=== PATIENT | female | born 1945 | race Caucasian/White ===

== ENCOUNTER 2017-09-16 15:21 | Inpatient (IN) | payer OTHER, MEDICARE ==
[~2017-09-16] VITALS: Ht 165.1 cm; Wt 80.0 kg
[2017-09-16] VITALS (7 sets, daily range): BP systolic 106–170; BP diastolic 65–98; PULSE 80–98; RESP 18–20; TEMP 97.5–97.9; O2SAT 92–98
[~2017-09-16 15:21] MED LIST: Z.0.NO CURRENT MEDS
[2017-09-16] MEDS ORDERED: SODIUM CHLORID 0.9% 500 ML INJ 500 ML IV ONE (16:00)
[2017-09-16] MEDS ORDERED: MORPHINE SULFATE 4 MG/ML INJ IV PUSH ONE (16:00)
[2017-09-16] MEDS ORDERED: SODIUM CHLORIDE 0.9% FLUSH 10 ML FLUSH IVF PRN (16:00)
[2017-09-16] MEDS ORDERED: ASPIRIN 81 MG CHEW TAB PO ONE (16:00)
[2017-09-16] MEDS ORDERED: ONDANSETRON HCL 4 MG/2 ML VIAL IV PUSH ONE (16:00)
--- NOTE | 2017-09-16 16:01 | PD ---
HPI . Nausea and vomiting Chief Complaint: GI Complaint Time Seen by Provider: 15:50 Travel History International Travel<30 days: No Contact w/Intl Traveler<30days: No Traveled to known affect area: No History of Present Illness HPI Patient presents with her daughter with a chief complaint of jaw and throat pain followed by nausea and and diarrhea. Onset was 2 hours prior to presentation. She also complains of diffuse, profound weakness and some chest discomfort. Her symptoms have been constant for the last 2 hours. She has tried a cold washcloth and ice chips without relief of her symptoms. Her symptoms were exacerbated by trying to get from the house to the car. That is, minimal exertion exacerbated her symptoms. PFSH Past Medical History Cardiovascular Problems: Yes Cerebrovascular Accident: Yes Diabetes: No Diminished Hearing: No Respiratory: Yes (COPD) Immunizations Current: Yes Tetanus Vaccination: Unknown ?: Not Menopausal: Yes Past Surgical History Cardiac Surgery: Yes (AR, CVA) Gynecologic Surgery: Yes Social History Alcohol Use: Yes (COUPLE DRINKS ONCE WEEKLY) Tobacco Use: Yes (1PPD FOR ABOUT 40 YEARS) Substance Use: No Allergies-Medications (Allergen,Severity, Reaction): Coded Allergies: Sulfa (Sulfonamide Antibiotics) (Unverified Allergy, Mild, 09/16/17) penicillin G (Unverified Allergy, Mild, 09/16/17) propoxyphene (Unverified Allergy, Mild, 09/16/17) heparin (Verified Allergy, Unknown, unknown, 09/16/17) Reported Meds & Prescriptions Reported Meds & Active Scripts Active No Active Prescriptions or Reported Medications Review of Systems Except as stated in HPI: all other systems reviewed are Neg Physical Exam Narrative GENERAL: Healthy-appearing 71-year-old woman who does not appear to be in any acute distress. SKIN: warm/dry. HEAD: Normocephalic. Atraumatic. EYES: Pupils equal and round. No scleral icterus. No injection or drainage. ENT: No nasal bleeding or discharge. Mucous membranes pink and moist. NECK: Trachea midline. Full range of motion without pain.. CARDIOVASCULAR: Regular rate and rhythm. Heart sounds are normal. RESPIRATORY: No accessory muscle use. Clear to auscultation. Breath sounds equal bilaterally. GASTROINTESTINAL: Abdomen soft. Nontender. Bowel sounds present. Nondistended. MUSCULOSKELETAL: No obvious deformities. NEUROLOGICAL: Awake and alert. No obvious cranial nerve deficits. Motor grossly within normal limits. Normal speech. PSYCHIATRIC: Appropriate mood and affect; insight and judgment normal. Data Data Last Documented VS Vital Signs Date Time Temp Pulse Resp B/P (MAP) Pulse Ox O2 Delivery O2 Flow Rate FiO2 09/16/17 16:21 98 20 170/87 (114) 98 Nasal Cannula 2.00 09/16/17 15:29 97.9 Orders Orders Electrocardiogram (09/16/17 15:54) Basic Metabolic Panel (Bmp) (09/16/17 15:54) Complete Blood Count With Diff (09/16/17 15:54) Magnesium (Mg) (09/16/17 15:54) Prothrombin Time / Inr (Pt) (09/16/17 15:54) Act Partial Throm Time (Ptt) (09/16/17 15:54) Troponin I (09/16/17 15:54) Chest, Single Ap (09/16/17 15:54) Ecg Monitoring (09/16/17 15:54) Iv Access Insert/Monitor (09/16/17 15:54) Oximetry (09/16/17 15:54) Aspirin Chew (Aspirin Chew) (09/16/17 16:00) Morphine Inj (Morphine Inj) (09/16/17 16:00) Sodium Chloride 0.9% Flush (Ns Flush) (09/16/17 16:00) Sodium Chlorid 0.9% 500 Ml Inj (Ns 500 M (09/16/17 16:00) Ondansetron Inj (Zofran Inj) (09/16/17 16:00) Heparin Inj (Heparin Inj) (09/16/17 16:15) Heparin Inj (Heparin Inj) (09/16/17 22:15) Heparin Inj (Heparin Inj) (09/16/17 22:15) Heparin-D5w 25,000 U/250 Ml (Heparin-D5w (09/16/17 16:30) Heparin Inj (Heparin Inj) (09/16/17 16:13) Admit Order (Ed Use Only) (09/16/17 ) Frame Stripper And Crusher / Telemetry [id number] (09/16/17 16:14) Vital Signs (Adult) Q4H (09/16/17 16:14) Diet Npo (09/16/17 Dinner) Activity Bed Rest (09/16/17 16:14) Notify Dr: Other (09/16/17 16:14) Labs Laboratory Tests Test 09/16/17 16:00 White Blood Count 11.1 TH/MM3 Red Blood Count 4.28 MIL/MM3 Hemoglobin 13.3 GM/DL Hematocrit 38.6 % Mean Corpuscular Volume 90.3 FL Mean Corpuscular Hemoglobin 31.2 PG Mean Corpuscular Hemoglobin Concent 34.5 % Red Cell Distribution Width 13.0 % Platelet Count 389 TH/MM3 Mean Platelet Volume 8.3 FL Neutrophils (%) (Auto) 74.1 % Lymphocytes (%) (Auto) 17.9 % Monocytes (%) (Auto) 6.8 % Eosinophils (%) (Auto) 1.1 % Basophils (%) (Auto) 0.1 % Neutrophils # (Auto) 8.2 TH/MM3 Lymphocytes # (Auto) 2.0 TH/MM3 Monocytes # (Auto) 0.8 TH/MM3 Eosinophils # (Auto) 0.1 TH/MM3 Basophils # (Auto) 0.0 TH/MM3 CBC Comment DIFF FINAL Differential Comment Prothrombin Time 9.4 SEC Prothromb Time International Ratio 0.9 RATIO Activated Partial Thromboplast Time 27.4 SEC Blood Urea Nitrogen 14 MG/DL Creatinine 0.82 MG/DL Random Glucose 152 MG/DL Calcium Level 9.1 MG/DL Magnesium Level 2.1 MG/DL Sodium Level 137 MEQ/L Potassium Level 3.7 MEQ/L Chloride Level 107 MEQ/L Carbon Dioxide Level 23.2 MEQ/L Anion Gap 7 MEQ/L Estimat Glomerular Filtration Rate 69 ML/MIN MDM Medical Decision Making Medical Screen Exam Complete: Yes Emergency Medical Condition: Yes Interpretation(s) EKG shows acute ST segment elevation inferiorly with reciprocal lateral STT wave changes. Differential Diagnosis Differential diagnosis of chest pain includes but is not limited to musculoskeletal pain, pulmonary embolism, acute coronary syndrome, pneumonia, pleurisy Narrative Course With the chief complaint of nausea, diarrhea and profound weakness which is associated with throat and jaw pain as well as chest discomfort. She needs to be evaluated for ACS. An EKG has been ordered. An IV will be started and she will be treated with IV morphine and Zofran initially. She will also be given aspirin. Routine labs, cardiac enzymes and chest x-ray are pending. I anticipate eventual admission to the hospital, at least to the chest pain center. Following her EKG, a stroke alert was called. Heparin was ordered but the patient reports allergy to heparin. She does report that she feels much better following morphine and Zofran. She has had aspirin. Critical Care Narrative Aggregate critical care time was 30 minutes. Time to perform other separately billable procedures was not included in the critical care time. My time did not include minutes spent treating any other patients simultaneously or on activities that did not directly contribute to the patient's treatment. The services I provided to this patient were to treat and/or prevent clinically significant deterioration due to STEMI, inferior AR I provided critical care services requiring my management, as noted below: Chart data review, documentation time, medication orders and management, vital sign assessments/reviewing monitor data, ordering and reviewing lab tests, ordering and interpreting/reviewing x-rays and diagnostic studies, care of the patient and discussion of the patient with the admitting physicians Physician Communication Physician Communication Dr. Dagn recommends against starting nitroglycerin because of the inferior AR. She has likely to develop cardiogenic shock. Diagnosis Primary Impression: Nausea Additional Impressions: Weakness Jaw pain Acute inferior myocardial infarction Admitting Information Admitting Physician Requests: Admit Scripts No Active Prescriptions or Reported Meds Condition: Aracely Farnsworth MD Sep 16, 2017 16:01
[2017-09-16] MEDS ORDERED: HEPARIN SODIUM - IV 10,000 UNITS/10 ML VIAL ONE (16:13)
[2017-09-16] MEDS ORDERED: HEPARIN SODIUM - IV 10,000 UNITS/10 ML VIAL IV PUSH ONE (16:15)
[2017-09-16 16:30] LABS: AUTOMATED NEUTROPHIL # 8.2 TH/MM3 (1.8-7.7); BASOPHIL % 0.1 % (0.0-2.0); EOSINOPHIL # 0.1 TH/MM3 (0-0.4); EOSINOPHIL % 1.1 % (0.0-4.0); HEMATOCRIT 38.6 % (35.0-46.0); HEMOGLOBIN 13.3 GM/DL (11.6-15.3); LYMPH % 17.9 % (9.0-44.0); MEAN CELL VOLUME 90.3 FL (80.0-100.0); MEAN CORPUSCULAR HEMOGLOBIN 31.2 PG (27.0-34.0); MEAN CORPUSCULAR HGB CONC 34.5 % (32.0-36.0); MEAN PLATELET VOLUME 8.3 FL (7.0-11.0); MONO % 6.8 % (0.0-8.0); MONOCYTE # 0.8 TH/MM3 (0-0.9); NEUT % 74.1 % (16.0-70.0); PLATELET COUNT 389 TH/MM3 (150-450); RED BLOOD COUNT 4.28 MIL/MM3 (4.00-5.30); WHITE BLOOD COUNT 11.1 TH/MM3 (4.0-11.0)
[2017-09-16] MEDS ORDERED: HEPARIN-D5W 25,000 U/250 ML 250 ML IV SCH (16:30)
[2017-09-16 16:31] LABS: CALCIUM 9.1 MG/DL (8.5-10.1)
[2017-09-16 16:32] LABS: BICARBONATE 23.2 MEQ/L (21.0-32.0); MAGNESIUM 2.1 MG/DL (1.5-2.5)
[2017-09-16 16:34] LABS: INTERNATIONAL NORMALIZED RATIO 0.9 RATIO; PROTHROMBIN TIME - PATIENT 9.4 SEC (9.8-11.6)
[2017-09-16 16:35] LABS: CREATININE 0.82 MG/DL (0.50-1.00)
[2017-09-16 16:40] LABS: TROPONIN I 0.04 NG/ML (0.02-0.05)
--- NOTE | 2017-09-16 16:47 | RADRPT ---
EXAM DATE/TIME: 09/16/2017 16:18 [facility] COMPARISON: No previous studies available for comparison. INDICATIONS : Chest pain. Stemi alert. MEDICAL HISTORY : None. SURGICAL HISTORY : Tubal ligation. Bilateral knees. ENCOUNTER: Initial ACUITY: 1 day PAIN SCORE: 6/10 LOCATION: Right chest FINDINGS: The heart size is normal. The lungs are free of focal consolidation. There is a questionable focal ma ss in the right upper lung. A significant effusion is not seen. CONCLUSION: 1. No definite acute abnormality seen. 2. Possible mass in the right upper lung. A CT examination the chest is recommended at some point. Jeremy Oliveira MD on September 16, 2017 at 16:43 Board Certified Radiologist. This report was verified electronically.
[2017-09-16] MEDS ORDERED: BIVALIRUDIN 250 MG VIAL ONE (16:52)
[2017-09-16] MEDS ORDERED: LIDOCAINE HCL 1% PF 30 ML VIAL ONE (16:58)
[2017-09-16] MEDS ORDERED: VERAPAMIL HCL 5 MG/2 ML VIAL ONE (17:02)
[2017-09-16] MEDS ORDERED: MIDAZOLAM HCL 2 MG/2 ML VIAL ONE (17:03)
--- NOTE | 2017-09-16 17:19 | MH ---
cc: Bryant Dang Vincent G DO DATE OF ADMISSION: 09/16/2017 CHIEF COMPLAINT: Nausea, vomiting. HISTORY OF PRESENT ILLNESS: Dana Daugherty is a pleasant 71-year-old female who presented to [facility] emergency room due to nausea and vomiting. She states that this has been going on for about the past 2 hours. During the episode, she has also felt some chest discomfort. She tried to use a wash cloth and ice chips without relief of her symptoms. As they were trying to get her to the car, this made the chest pain worse. Upon arrival, she was found to have ST elevations in the inferior leads and I was called emergently for consideration of cardiac catheterization. PAST MEDICAL HISTORY: 1. History of cerebrovascular accident. 2. Chronic obstructive pulmonary disease. PAST SURGICAL HISTORY: 1. Tubal ligation. 2. D and C. 3. Right knee arthroscopic partial medial and lateral meniscectomy (2010). ALLERGIES: 1. SULFA. 2. HEPARIN. 3. PENICILLIN. 4. PROPOXYPHENE MEDICATIONS: None listed at this time. FAMILY HISTORY: Brother had a history of coronary artery disease. SOCIAL HISTORY: The patient has a few drinks once a week. She smoked 1 pack a day for about 40 years. Denies drug abuse. REVIEW OF SYSTEMS: Fourteen systems were reviewed including osteopathic, pertinent positives and negatives above, otherwise negative. PHYSICAL EXAMINATION: VITAL SIGNS: Temperature 97.9, heart rate 98, blood pressure 170/87, respirations 20, pulse oximetry 98% on 2 liters. GENERAL: The patient appears well, although in mild acute distress due to chest pain. Alert, awake and oriented x3. HEENT: Extraocular muscles intact. Mucous membranes moist. NECK: Supple. No JVD at 45 degrees. No carotid bruits heard bilaterally. Carotid upstroke is brisk in nature. HEART: Regular rate and rhythm. Positive first and second heart sounds with no murmurs, gallops or rubs. LUNGS: Clear to auscultation bilaterally. No wheezes, rales or rhonchi. ABDOMEN: Soft, nontender, nondistended. No organomegaly noted. EXTREMITIES: Show no clubbing, cyanosis or edema. Femoral and distal pulses are intact bilaterally. NEUROLOGIC: No focal deficits. SKIN: Warm, dry and intact. OSTEOPATHIC: No kyphoscoliosis, lordosis or paraspinal tender points. LABORATORY DATA: Hemoglobin 13.3, hematocrit 38.6, platelets 389. Potassium 3.7, BUN 14, creatinine 0.82. Troponin 0.04. CARDIOLOGY STUDIES: Electrocardiogram (09/16/2017 at 16:04) sinus rhythm, ST elevations inferiorly with ST depressions anteriorly consistent with an inferior posterior myocardial infarction. IMPRESSION: 1. Acute inferior posterior myocardial infarction. 2. Chest pain due to coronary insufficiency. 3. Tobacco abuse. 4. Chronic obstructive pulmonary disease. 5. History of cerebrovascular accident. RECOMMENDATIONS: 1. Ms. Daugherty presented with acute chest pain and was found to have ST elevation myocardial infarction and will be recommended cardiac catheterization. 2. Risks, benefits, and alternatives have been discussed with her and she consents as such. 3. She has an unknown ALLERGY TO HEPARIN and so we will plan on using bivalirudin. 4. We will check a 2-Dimensional echocardiogram to look at her overall left ventricular function, cardiac structure and possible valvopathies. 5. During her hospitalization, we will plan to discuss with her for greater than 3 minutes about tobacco cessation. 6. Further recommendations will be made after coronary visualization. Thank you for allowing me to see Dana Daugherty. If there are any questions, please do not hesitate to call. Bryant Dang, DO V[facility]/SA , 04:56 PM , 05:17 PM
[2017-09-16] MEDS ORDERED: ONDANSETRON HCL 4 MG/2 ML VIAL ONE ×2 (17:36→17:46)
[2017-09-16] MEDS ORDERED: ADENOSINE IV SOLN 3 MG/ML 2 ML VIAL ONE (17:37)
[2017-09-16] MEDS ORDERED: SODIUM NITROPRUSSIDE 50 MG/2 ML VIAL ONE (17:47)
[2017-09-16] MEDS ORDERED: TIROFIBAN INFUSION INJ 250 ML IV ONE (17:53)
[2017-09-16] MEDS ORDERED: TICAGRELOR 90 MG TAB PO ONE (17:53)
[2017-09-16] MEDS ORDERED: ATROPINE SULFATE 1 MG/10 ML SYRINGE ONE (18:08)
[2017-09-16] MEDS: SODIUM CHLOR 0.9% 1000 ML INJ 1,000 ML IV SCH (18:35)
[2017-09-16] MEDS: TIROFIBAN INFUSION INJ 250 ML IV SCH (18:35)
--- NOTE | 2017-09-16 18:44 | CATHPROC ---
[employer] HIS Report Study Information Study Number Admission Scheduled Start Study Start [id number] Sep 16 2017 4:16PM 09/16/2017 Sep 16 2017 4:54PM Study Type [place] Service Left/Possible PCI Cardiac Catheterization Admit Source Facility Department Emergency department [facility] - Teaching Dietitian Physician and Clinical Staff Initial Bryant Albright Mechanical Service Specialist Jocy Weldon RN Mechanical Service Specialist Constance Estes Recorder Mariam Delgado,ABRASIVE WORKER TECH2 Scrub Susu Gross,RT(R) (BS) Procedures Performed Procedure Location (Site) Vessel Name Coronary Angiograms LCA Left Coronary Coronary Angiograms RCA Right Coronary Drug Eluting Inflatio RCA Mid Right Coronary PTCA RCA Mid Right Coronary Wire insertion Radial (right) Radial Art. Equipment Time Non Categorical Preschool Teacher Description Size Mf Part Number Used/Scraped [id number] 17:48 [facility] WIRE, ASAHI PROWATER 180CM 180CM Used *[id number] WIRE, BALANCE MIDDLEWEIGHT [id number] 17:28 [facility] [facility] 190CM Used 190CM *[id number] TRANSDUCER, TRUWAVE [id number] 17:00 [facility] * Used W/STOCKCOCK *[id number] *[id number] *[id number] 17:00 ResiModel PACK, CCL CUSTOM * Used *[id number] 17:00 ResiModel SUPPORT, ARTERIAL ADULT [id number] *[id number] Used [id number] 17:30 MEDTRONIC BALLOON, 2.0 X 12MM EUPHORA 12MM Used *[id number] BALLOON, 3.0 X 12MM NC [id number] 17:52 MEDTRONIC 12MM Used EUPHORA *[id number] EXPORTAP 17:32 MEDTRONIC CATHETER, EXPORT ASPIRATON Used *[id number] EXPORTAP 17:32 MEDTRONIC CATHETER, EXPORT ASPIRATON Used *[id number] STENT, 3.0 22 RESOLUTE [id number] 17:42 MEDTRONIC 3.0 22 Used INTEGRITY RX *[id number] 17:31 Dreamforge 30 BUDDY INDEFLATOR Used *[id number] BAND, RADIAL COMPRESSION TR [id number] 18:02 dVisit MEDICAL 24CM Used SHORT 24 *[id number] 17:00 [employer]forge WIRE, EXCHANGE 260CM 3MMJ 260CM Used *[id number] 17:00 NAMIC MANIFOLD, 4 PORT * Used *[id number] 17:00 NYCOMED OMNIPAQUE, 350 MG, 150ML 150ML [id number] Used [id number] 17:00 BEECH BLUFF MEDICAL BLANKET,WARM AIR CCL * Used *[id number] SHEATH, FR6 TRANSRADIAL [id number] 17:00 TERfrestyl FR 6 Used SLENDER 10CM *[id number] Equipment Model, Serial, Lot Number and Expiration Data Description Model Number Serial Number Lot Number Expiration Date BAND, RADIAL COMPRESSION TR [id number] 03-21-2020 SHORT 24 CATHETER, EXPORT ASPIRATON [id number] 03-29-2019 STENT, 3.0 22 RESOLUTE [id number] 10-03-2018 INTEGRITY RX History: Allergies Allergy Reaction Sulfa (Sulfonamide Antibiotics) propoxyphene penicillin G heparin unknown History: Risk Factors Family History of Hypertension Dyslipidemia Previous AL Previous Heart Failure Premature CAD No No No Yes No Prior Valve Prior PCI Prior CABG Surgery No No No Cerebrovascular Peripheral Artery Chronic Lung On Dialysis Diabetes Disease Disease Disease No Yes No Yes No History: Symptoms/Diagnosis Selection Items Angina-unstable History: Stress Tests Stress or Imaging Studies Performed No History: Other Current Smoker Method Packs a Day Years Used Pack Years Yes Cigarettes 1 40 40 Labs Hgb (g/dl) Hct (%) WBC (l/cumm) Platelets (thousands) 11.60-17.00 35.00-51.00 4.00-11.00 150.00-450.00 13.3 38.6 11.1 389 Glucose (mg/dl) BUN (mg/dl) Creatinine (mg/dl) BUN:Creatinine (1:x) 74.00-106.00 7.00-18.00 0.50-1.30 10.00-20.00 152 14 0.8 17.5 Na (meq/l) K (meq/l) Cl (meq/l) CO2 (mmol/L) Ca (mg/dl) 136.00-145.00 3.50-5.10 98.00-107.00 21.00-32.00 8.50-10.10 137 3.7 107 23.2 9.1 PT (sec) PTT (sec) INR (PTT:PT) 9.80-11.60 24.30-30.10 0.90-1.10 9.4 27.4 0.9 Troponin I (ng/ml) CPK-MB (ng/ML) 0.02-0.05 0.50-3.60 0.04 Not Drawn Medication Medication Total Dose (Bolus/Oral) Medication Total Dosage/Unit 1% XYLOCAINE 5 mL ADENOSINE 18 mcg AGGRASTAT BOLUS 40.5 mg ANGIOMAX BOLUS 12 mL ATROPINE 0.5 mg BRILINTA 180 mg FENTANYL 25 mcg OXYGEN 2 l/min RADIAL COCKTAIL 5 mL (Bolus) VERSED 0.5 mg ZOFRAN 8 mg Medications (Bolus/Oral) Medication Time Given Dosage/Unit Administered By Reason OXYGEN 09/16/2017 5:11:39 PM 2 l/min Patient arrived on 2 l/min OXYGEN via Nasal. 1% XYLOCAINE 09/16/2017 5:18:15 PM 5 mL Brynat Dang 5 mL 1% XYLOCAINE given in lab by Bryant Dang in Right Radial via Subcutaneous. VERSED 09/16/2017 5:19:27 PM 0.5 mg Jocy Weldon 0.5 mg VERSED given in lab by Jocy Weldon RN via Peripheral IV. Ordered by Bryant Dang RADIAL COCKTAIL 09/16/2017 5:20:05 PM 5 mL (Bolus) Bryant Dang 5 mL (Bolus) RADIAL COCKTAIL given in lab by Bryant Dang via Radial. Using [Solution Name]. R uyen: Ntg 200mcg Verapamil 2.5mg . FENTANYL 09/16/2017 5:20:48 PM 25 mcg Jocy Weldon 25 mcg FENTANYL given in lab by Jocy Weldon RN in Left Antecubital via Peripheral IV. Ordered by Bryant Dang ANGIOMAX BOLUS 09/16/2017 5:27:23 PM 12 mL Bello Weldonon 12 mL ANGIOMAX BOLUS given in lab by Jocy Weldon, FUAD in Left Hand via Peripheral IV. Ordered by Bryant Carrera ZOFRAN 09/16/2017 5:38:24 PM 4 mg Constance Estes 4 mg ZOFRAN given in lab by Constance Estes in Left Antecubital via Peripheral IV. Ordered by Bryant Huynh ATROPINE 09/16/2017 5:39:05 PM 0.5 mg Jocy Weldon 0.5 mg ATROPINE given in lab by Jocy Weldon RN in Left Antecubital via Peripheral IV. Ordered by Bryant Dang ADENOSINE 09/16/2017 5:41:04 PM 18 mcg Bryant Dang 18 mcg ADENOSINE given in lab by Bryant Dang via Intra-coronary to RCA. Ordered by Bryant Dang ZOFRAN 09/16/2017 5:47:22 PM 4 mg Constance Estes 4 mg ZOFRAN given in lab by Constance Estes in Left Antecubital via Peripheral IV. Ordered by Bryant Huynh AGGRASTAT BOLUS 09/16/2017 5:58:34 PM 40.5 mg Jocy Weldon 40.5 mg AGGRASTAT BOLUS given in lab by Jocy Weldon RN in Left Antecubital via Peripheral IV. Ord ered by Bryant Dang. BRILINTA 09/16/2017 6:12:42 PM 180 mg Jocy Weldon 180 mg BRILINTA given in lab by Jocy Weldon RN via Oral. Ordered by Bryant Dang Medication (Drip) Medication Time Given Dosage/Unit Concentration/Unit Diluent (ml) Solution AGGRASTAT DRIP 09/16/2017 6:00:50 PM 0.15 mcg/kg/min 12.5 mg 250 NaCl .9 0.15 mcg/kg/min AGGRASTAT DRIP given in lab by Jocy Weldon RN in Left Antecubital via Peripheral IV. Pump/Drip Flow = 14.58 ml/hr using NaCl .9 with a concentration of 12.5 mg in 250 ml. Ordered by Bryant Dang ANGIOMAX DRIP 09/16/2017 5:29:09 PM 1.75 mg/kg/hr 250 mg 50 NaCl .9 1.75 mg/kg/hr ANGIOMAX DRIP given in lab by Jocy Weldon RN in Left Hand via Peripheral IV. Pump/D rip Flow = 28.35 ml/hr using NaCl .9 with a concentration of 250 mg in 50 ml. Ordered by Bryant Dang IV Solutions 09/16/2017 5:04:47 PM 0 mL (IV) 500 NaCl .9 Patient arrived on IV Solutions in Left Hand via Peripheral IV. Pump/Drip Flow = 20 ml/hr using NaCl .9. IV Solutions 09/16/2017 5:04:49 PM 0 mL (IV) 500 NaCl .9 Patient arrived on IV Solutions in Left Antecubital via Peripheral IV. Pump/Drip Flow = 20 ml/hr isiah chamberlain NaCl .9. NIPRIDE 09/16/2017 5:57:25 PM 50 mcg 50 mcg NIPRIDE given in lab by Bryant Dang via Intra-coronary to RCA. Ordered by Yuko Dang. Initial Case Assessment Cardiovascular HR NIBP Chest Pain 73 144/79 0 Circulatory - Right Pulses Dorsalis Pedis Femoral Radial 2 2 2 Scale (0,1,2,3,4,d) Circulatory - Left Pulses Dorsalis Pedis Femoral Radial 2 2 Scale (0,1,2,3,4,d) Neurological State Oriented to time-place- Alert Moves all extremities person Respiration - General Respiration Rate SpO2 (%) O2 (lpm) (B/min) 22 99 2 Final Case Assessment Cardiovascular HR Rhythm NIBP Chest Pain 93 sr 100/43 0 Circulatory - Right Pulses Dorsalis Pedis Femoral Radial 2 2 2 Scale (0,1,2,3,4,d) Circulatory - Left Pulses Dorsalis Pedis Femoral Radial 2 Scale (0,1,2,3,4,d) Neurological State Oriented to time-place- Alert Moves all extremities person Respiration - General Respiration Rate SpO2 (%) O2 (lpm) (B/min) 19 97 2 Chronological Log Time Study Chronological Log 16:35:25 [facility] notified that Teaching Dietitian is ready. 17:03:45 Patient arrived directly from [facility] ER. 17:03:51 Patient Name, D.O.B, / Armband Verified By R.N. 17:03:53 Pre-op and post- op instructions given; patient acknowledges understanding of instructions. 17:03:54 Verbal Stimulation=2 Physical Stimulation=2 Airway=2 Respiration=2 TOTAL=8. (0=absent, 1=li mited, 2=present) 17:04:17 arrived. 17:04:39 Presedation assessment performed by Teaching Dietitian RN. 17:04:40 Patient has been NPO for More than 6Hrs. 17:04:41 Skin Breakdown-none 17:04:42 Disposable Defibrillator Pads Placed On Patient. 17:04:43 [place] Prominences Protected 17:04:46 A # 20 IV was noted in the Hand (left). Grade = 0 17:04:47 Patient arrived on IV Solutions in Left Hand via Peripheral IV. Pump/Drip Flow = 20 ml/hr u sing NaCl .9. 17:04:48 A # 20 IV was noted in the Antecubital (left). Grade = 0 17:04:49 Patient arrived on IV Solutions in Left Antecubital via Peripheral IV. Pump/Drip Flow = 20 ml/hr using NaCl .9. 17:05:32 Consent signed by the physician and the patient and verified by the Teaching Dietitian staff. Vitals capture started with the following parameters, Patient=Adult, Interval=5 min, Initial Pr ncpmwc=091 mmHg, 17:11:16 Deflation Rate=5 mmHg, Cuff placed on Left Arm 17:11:39 Patient arrived on 2 l/min OXYGEN via Nasal. 17:12:30 HR=80 bpm, CPTL=706/79 mmhg, SpO2=97 %, Resp=23 B/min, Pain=0, Adelina=10, Francois=2 17:13:06 History and physical on the chart or being dictated. 17:13:11 Bilateral groins and right radial prepped with 2% chlorhexidine, and draped after a 3 min. waiting time. 17:14:10 Reference ECG taken Assessment: Initial Case, HR=73 BPM, REHE=268/79 mmhg, Chest Pain=0 Right Pulses: Yobani Ped=2, Femoral=2, Radial=2 17:14:17 Left Pulses: Yobani Ped=2, Femoral=2 Neurological: State=Alert, Ox3, BATISTA Respiration: Resp=22 B/min, SpO2=99 %, O2=2 lpm 17:16:42 Pressure channel 1 zeroed. 17:17:29 HR=87 bpm, LFPP=822/83 mmhg, SpO2=98.0 %, Resp=21 B/min Time Out. Correct patient, correct procedure, correct physician, power injector not loaded/used with contrast with 17:17:52 surgical team present. Time Out Concurred by MD and individual staff in procedure. No heparin w as added to the flush. 17:18:14 Case Start 17:18:15 5 mL 1% XYLOCAINE given in lab by Bryant Dang in Right Radial via Subcutaneous. 17:19:27 0.5 mg VERSED given in lab by Jocy Weldon, FUAD via Peripheral IV. Ordered by Yuko Dang 17:19:29 Access site was Radial Artery. right A SHEATH, FR6 TRANSRADIAL SLENDER 10CM FR 6 was advanced into the Radial (right) using the Perc utaneous 17:19:44 technique. 5 mL (Bolus) RADIAL COCKTAIL given in lab by Bryant Dang via Radial. Using [Solution Na me]. Reason: Ntg 17:20:05 200mcg Verapamil 2.5mg . A JL 3.5 INFINITI CATHETER FR 5 was advanced over a wire. OMNIPAQUE, 350 MG, 150ML 150ML was us ed for 17:20:37 injections. 25 mcg FENTANYL given in lab by Jocy Weldon, RN in Left Antecubital via Peripheral IV. Order ed by Alton 17:20:48 Bryant Chavira 17:21:54 HR=89 bpm, JZZQ=877/62 mmhg, SpO2=98.0 %, Resp=22 B/min Recorded Pressure: Ao, HR=86, Condition=Condition 1 17:22:01 (Aorta) Ao 112/69/89 17:22:18 The LCA was injected and visualized at various angles. OMNIPAQUE, 350 MG, 150ML 150ML used . After removing the current catheter a JR 4.0 GUIDE CATHETER FR 6 was advanced over a WIRE, EXCH LILIANE 260CM 17:24:09 3MMJ 260CM. Recorded Pressure: LV, HR=55, Condition=Condition 1 17:26:35 (Left Ventricle) LV 104/7/18 Recorded Pressure: LV, Ao, HR=55, Condition=Condition 1 17:26:50 (Left Ventricle) LV 104/9/17, (Aorta) Ao 103/56/78 17:27:12 The RCA was injected and visualized at various angles. OMNIPAQUE, 350 MG, 150ML 150ML used . 12 mL ANGIOMAX BOLUS given in lab by Jocy Weldon, RN in Left Hand via Peripheral IV. Ordered by Alton 17:27:23 Bryant Chavira 17:27:27 HR=56 bpm, ZKTS=453/46 mmhg, SpO2=95 %, Resp=20 B/min 17:28:38 A WIRE, BALANCE MIDDLEWEIGHT 190CM 190CM was inserted via Radial (right). 1.75 mg/kg/hr ANGIOMAX DRIP given in lab by Jocy Weldon, FUAD in Left Hand via Peripheral IV. Pump/Drip Flow = 17:29:09 28.35 ml/hr using NaCl .9 with a concentration of 250 mg in 50 ml. Ordered by Bryant Dang 17:29:41 Interventional wire has crossed the lesion A BALLOON, 2.0 X 12MM EUPHORA 12MM was inserted over WIRE, BALANCE MIDDLEWEIGHT 190CM 190CM via the 17:29:47 RCA. A BALLOON, 2.0 X 12MM EUPHORA 12MM over a WIRE, BALANCE MIDDLEWEIGHT 190CM 190CM in the RCA Mid was 17:30:25 inflated using a 30 BUDDY INDEFLATOR at 8 buddy for 15 sec. 17:31:39 Balloon Removed. 17:31:58 HR=44 bpm, NIBP=85/40 mmhg, SpO2=97.0 %, Resp=21 B/min 17:32:40 NIBP STAT measurement started. 17:32:50 Pressure channel 1 zeroed. A CATHETER, EXPORT ASPIRATON was advanced over a wire. OMNIPAQUE, 350 MG, 150ML 150ML was used for 17:33:13 injections. 17:33:28 Fluids opened wide 17:34:03 HR=47 bpm, NIBP=70/37 mmhg, SpO2=93.0 %, Resp=20 B/min 17:34:49 Aspiration in progress 17:35:21 NIBP STAT measurement started. 17:36:02 Pt nauseated 17:36:04 [employer] Catheter was removed 17:36:28 HR=77 bpm, NIBP=90/39 mmhg, SpO2=98.0 %, Resp=16 B/min Recorded Pressure: Ao, HR=78, Condition=Condition 1 17:36:30 (Aorta) Ao 106/66/85 17:38:24 4 mg ZOFRAN given in lab by Constance Estes in Left Antecubital via Peripheral IV. Ordered by Bryant Dang 0.5 mg ATROPINE given in lab by Jocy Weldon, RN in Left Antecubital via Peripheral IV. Order ed by Alton 17:39:05 Bryant Chavira 17:39:07 Activated Clotting Time Drawn 17:41:04 18 mcg ADENOSINE given in lab by Bryant Dang via Intra-coronary to RCA. Ordered by Bryant Dang A STENT, 3.0 22 RESOLUTE INTEGRITY RX 3.0 22 was advanced through a JR 4.0 GUIDE CATHETER FR 6 over a WIRE, 17:41:48 BALANCE MIDDLEWEIGHT 190CM 190CM. 17:42:22 HR=92 bpm, TJIF=144/62 mmhg, SpO2=96.0 %, Resp=21 B/min A STENT, 3.0 22 RESOLUTE INTEGRITY RX 3.0 22 was deployed using a 30 BUDDY INDEFLATOR at 10 atmos pheres for 17:44:23 15 seconds in the RCA Mid. 17:45:28 Delivery device removed 17:45:35 ACT (Normal Range 90-180) = 321 17:46:55 HR=62 bpm, NIBP=89/48 mmhg, SpO2=98.0 %, Resp=15 B/min 17:47:22 4 mg ZOFRAN given in lab by Constance Estes in Left Antecubital via Peripheral IV. Ordered by Bryant Dang 17:47:35 A WIRE, [facility] PROWATER 180CM 180CM was inserted via Radial (right). 17:51:50 HR=91 bpm, OBGF=501/59 mmhg, SpO2=97.0 %, Resp=19 B/min A BALLOON, 3.0 X 12MM NC EUPHORA 12MM was inserted over WIRE, BALANCE MIDDLEWEIGHT 190CM 190CM via 17:52:49 the RCA Prox. A BALLOON, 3.0 X 12MM NC EUPHORA 12MM over a WIRE, BALANCE MIDDLEWEIGHT 190CM 190CM in the RCA Mid 17:53:27 was inflated using a 30 BUDDY INDEFLATOR at 14 buddy for 20 sec. A BALLOON, 3.0 X 12MM NC EUPHORA 12MM over a WIRE, BALANCE MIDDLEWEIGHT 190CM 190CM in the RCA Mid 17:54:02 was inflated using a 30 BUDDY INDEFLATOR at 14 buddy for 10 sec. A BALLOON, 3.0 X 12MM NC EUPHORA 12MM over a WIRE, BALANCE MIDDLEWEIGHT 190CM 190CM in the RCA Mid 17:54:39 was inflated using a 30 BUDDY INDEFLATOR at 14 buddy for 10 sec. 17:55:19 Balloon Removed. 17:56:55 HR=90 bpm, OCHU=162/53 mmhg, SpO2=97.0 %, Resp=18 B/min 17:57:25 50 mcg NIPRIDE given in lab by Bryant Dang via Intra-coronary to RCA. Ordered by Bryant Carrera 40.5 mg AGGRASTAT BOLUS given in lab by Jocy Weldon, RN in Left Antecubital via Peripheral I V. Ordered by 17:58:34 Bryant Dang 18:00:02 Pt nauseated 18:00:48 [place] Wire removed 0.15 mcg/kg/min AGGRASTAT DRIP given in lab by Jocy Weldon, FUAD in Left Antecubital via Perip heral IV. Pump/Drip 18:00:50 Flow = 14.58 ml/hr using NaCl .9 with a concentration of 12.5 mg in 250 ml. Ordered by Bryant Dang 18:01:56 HR=87 bpm, LDBK=749/51 mmhg, SpO2=97.0 %, Resp=11 B/min 18:02:05 BMW Wire removed 18:02:33 Guide Catheter was removed over wire. 18:02:50 Case End 18:04:05 No case complications noted. 18:04:07 Cine recording checked. Radial Compression Device Used. 10 mLs of air placed in BAND, RADIAL COMPRESSION TR SHORT 24 24 CM. Affected 18:06:55 hand 95 % O2 saturation. 18:06:57 HR=89 bpm, UDLZ=226/51 mmhg, SpO2=97.0 %, Resp=11 B/min 18:11:56 HR=93 bpm, NIBP=98/55 mmhg, SpO2=97.0 %, Resp=8 B/min 18:12:42 180 mg BRILINTA given in lab by Jocy Weldon, FUAD via Oral. Ordered by Bryant Dang 18:17:34 HR=91 bpm, LNUP=369/43 mmhg, SpO2=99.0 %, Resp=9 B/min Assessment: Final Case, HR=93 BPM, Rhythm=sr, PRTB=527/43 mmhg, Chest Pain=0 Right Pulses: Yobani Ped=2, Femoral=2, Radial=2 18:20:25 Left Pulses: Yobani Ped=2 Neurological: State=Alert, Ox3, BATISTA Respiration: Resp=19 B/min, SpO2=97 %, O2=2 lpm 18:21:56 HR=89 bpm, NIBP=91/50 mmhg, SpO2=99.0 %, Resp=15 B/min 18:27:35 Patient moved to stretcher 18:27:38 Patient transported to CVICU. End Study - Contrast Media Used In Study Contrast Total Opened (mL) Total Used (mL) Total Wasted (mL) Omnipaque 120 120 0 End Study - Maximum Contrast Load Max Contrast Load (mL) 506.3 End Study - Radiation Exposure Fluoro Time (minutes) 11.1 End Study - Sheaths Sheaths Pulled By Sheath Hold Time (min) Susu Gross End Study - Patient Disposition Complications Transferred To Interventional Outcome No Critical Care Bed successful
[2017-09-16] MEDS ORDERED: ONDANSETRON HCL 4 MG/2 ML VIAL IVP PRN (18:45)
[2017-09-16] MEDS ORDERED: MORPHINE SULFATE 4 MG/ML INJ IV PUSH PRN (18:45)
[2017-09-16] MEDS ORDERED: ACETAMINOPHEN 325 MG TAB PO PRN (18:45)
[2017-09-16] MEDS ORDERED: oxyCODONE/ACETAMINOPHEN 10 MG/325 MG TAB PO PRN (18:45)
[2017-09-16] MEDS ORDERED: oxyCODONE/ACETAMINOPHEN 5 MG/325 MG TAB PO PRN (18:45)
[2017-09-16] MEDS: ATORVASTATIN 10 MG TAB PO SCH (21:00)
[2017-09-16] MEDS ORDERED: HEPARIN SODIUM - IV 10,000 UNITS/10 ML VIAL IV PUSH PRN ×2 (22:15)
--- NOTE | 2017-09-17 00:14 | EKG ---
Date Performed: 09/16/2017 Time Performed: 16:04:28 PTAGE: 71 years EKG: Sinus rhythm MARKED ST ELEVATION, CONSIDER INFERIOR INJURY ACUTE PR PREVIOUS TRACING : 03/29/2005 15.04 Compared to previous tracing, ST elevations inferiorl y and depressions anteriorly consistent with acute inferior/posterior myocardial infarction DOCTOR: Bryant Dang Interpretating Date/Time 09/17/2017 00:14:18
[2017-09-17 03:00] VITALS: BP 113/67; PULSE 79; PULSE 80; RESP 18; TEMP 98.2; O2SAT 97
[2017-09-17] MEDS: SODIUM CHLOR 0.9% 1000 ML INJ 1,000 ML IV SCH (03:10)
[2017-09-17] MEDS: TIROFIBAN INFUSION INJ 250 ML IV SCH (03:17)
[2017-09-17 07:00] VITALS: BP 112/66; PULSE 69; PULSE 74; RESP 16; TEMP 97.6; O2SAT 97
[2017-09-17 08:20] LABS: AUTOMATED NEUTROPHIL # 6.8 TH/MM3 (1.8-7.7); BASOPHIL % 0.4 % (0.0-2.0); EOSINOPHIL # 0.1 TH/MM3 (0-0.4); EOSINOPHIL % 0.8 % (0.0-4.0); HEMATOCRIT 35.4 % (35.0-46.0); HEMOGLOBIN 12.1 GM/DL (11.6-15.3); LYMPH % 15.8 % (9.0-44.0); LYMPHOCYTE # 1.4 TH/MM3 (1.0-4.8); MEAN CELL VOLUME 92.1 FL (80.0-100.0); MEAN CORPUSCULAR HEMOGLOBIN 31.4 PG (27.0-34.0); MEAN CORPUSCULAR HGB CONC 34.1 % (32.0-36.0); MEAN PLATELET VOLUME 7.6 FL (7.0-11.0); MONO % 7.4 % (0.0-8.0); MONOCYTE # 0.7 TH/MM3 (0-0.9); NEUT % 75.6 % (16.0-70.0); PLATELET COUNT 340 TH/MM3 (150-450); RED BLOOD COUNT 3.85 MIL/MM3 (4.00-5.30); RED CELL DISTRIBUTION WIDTH 13.4 % (11.6-17.2)
[2017-09-17] MEDS: ASPIRIN 81 MG CHEW TAB PO SCH (08:29)
[2017-09-17] MEDS: TICAGRELOR 90 MG TAB PO SCH ×2 (08:29→20:56)
[2017-09-17 08:45] LABS: BICARBONATE 22.4 MEQ/L (21.0-32.0); CALCIUM 8.3 MG/DL (8.5-10.1); CREATININE 0.75 MG/DL (0.50-1.00)
[2017-09-17 08:48] LABS: CHOLESTEROL/ HDL RATIO 4.17 RATIO; HDL CHOLESTEROL 45.3 MG/DL (40.0-60.0)
[2017-09-17 11:00] VITALS: BP 103/53; PULSE 80; PULSE 84; RESP 16; TEMP 97.7; O2SAT 95
[2017-09-17] MEDS ORDERED: PROMETHAZINE HCL 25 MG TAB PO PRN (11:45)
--- NOTE | 2017-09-17 11:55 | ECHRPT ---
Indication: CONCLUSIONS The left ventricular systolic function is low normal with an estimated ejection fraction in the rang e of 50%. The right ventricle is mildly dilated. The right ventricular systoilc function is normal. There is trace tricuspid valve regurgitation. BP: / HR: Rhythm: MEASUREMENTS (Male / Female) Normal Values Technical Quality: 2D ECHO LV Diastolic Diameter PLAX 4.2 cm 4.2 - 5.9 / 3.9 - 5.3 cm LV Systolic Diameter PLAX 3.4 cm IVS Diastolic Thickness 1.2 cm 0.6 - 1.0 / 0.6 - 0.9 cm LVPW Diastolic Thickness 0.5 cm 0.6 - 1.0 / 0.6 - 0.9 cm LV Relative Wall Thickness 0.4 RV Internal Dim ED PLAX 1.9 cm M-MODE Aortic Root Diameter MM 3.3 cm AV Cusp Separation MM 2.2 cm DOPPLER Mitral E Point Velocity 80.9 cm/s Mitral A Point Velocity 70.1 cm/s Mitral E to A Ratio 1.2 TR Peak Velocity 277.0 cm/s TR Peak Gradient 30.7 mmHg FINDINGS LEFT VENTRICLE Normal left ventricular size. Wall thickness is normal. The left ventricular systolic function is low normal with an estimated ejection fraction in the rang e of 50%. No regional wall motion abnormalities are present. RIGHT VENTRICLE The right ventricle is mildly dilated. The right ventricular systoilc function is normal. LEFT ATRIUM The left atrial size is normal. RIGHT ATRIUM The right atrial size is normal. ATRIAL SEPTUM Normal atrial septal thickness AORTA The aortic root and proximal ascending aorta are not well visualized. MITRAL VALVE Structurally normal mitral valve. No mitral valve stenosis or regurgitation. AORTIC VALVE Trileaflet aortic valve. No aortic valve stenosis or regurgitation. TRICUSPID VALVE Structurally normal tricuspid valve. There is trace tricuspid valve regurgitation. No tricuspid valve stenosis. PULMONARY VALVE The pulmonary valve is not well visualized. VESSELS The inferior vena cava is normal in size. PERICARDIUM No pericardial effusion. Bryant Dang DO (Electronically Signed) Final Date:17 September 2017 11:54
[2017-09-17] MEDS ORDERED: ALUMINUM/MAGNESIUM/SIMETH 30 ML CUP PO ONE ×2 (12:00→12:30)
--- NOTE | 2017-09-17 12:24 | MA ---
cc: Bryant Dang Vincent G DO DATE: 09/16/2017 PROCEDURE: Left heart catheterization, coronary angiogram, moderate sedation 40 minutes, aspiration thrombectomy, coronary injection of adenosine and Nipride, acute inferior STEMI status post Edcouch drug-eluting stent (3 x 22) to the RCA, complex case. PREPROCEDURE DIAGNOSIS: Acute inferior STEMI. POSTPROCEDURE DIAGNOSIS: Acute inferior STEMI, status post aspiration thrombectomy and Edcouch drug-eluting stent (3 x 22) to the RCA. MEDICATIONS: Verapamil 2.5 mg, nitro 200 mcg, Versed 0.5 mg, fentanyl 25 mcg, Angiomax bolus of 12 mL, Angiomax drip of 28.4 mL per hour, Zofran 8 mg, atropine 0.5 mg, adenosine 18 mcg intracoronary, Aggrastat bolus 40.5 with a drip of 14.6 mL per hour, Nipride 50 mcg intracoronary, Brilinta 180 mg. CONTRAST USED: 120 mL FLUOROSCOPY: 11.1 minutes. MODERATE SEDATION: 40 minutes. FRAILTY SCORE: 4. ESTIMATED BLOOD LOSS: 10 mL PROCEDURAL SUMMARY: Dana Daugherty is a pleasant 71-year-old female who presented to [facility] Emergency Room in [place] due to nausea, vomiting, chest pain. She was found to have ST elevations inferiorly and was transferred emergently for cardiac catheterization. Symptoms had started 2 hours before arriving to the emergency room. Risks, benefits and alternatives were explained to her and she consented as such. She was brought to the lab and prepped in the usual sterile fashion. The right radial artery was accessed using modified Seldinger technique and placement of a 5/6 Swiss slender sheath. This is easily aspirated and flushed. A JR4 3.5 was advanced over a J-wire to the ascending aorta and used for selective angiography of the left coronary artery system. This was exchanged out for a JR4 guide, which was used to cross the aortic valve for measurement of left ventricular pressure. This was pulled back across the aortic valve showing no significant gradient of aortic stenosis. JR4 guide was then engaged into the right coronary and angiogram shows 100% occlusion of the RCA. At this time, due to the patient's HEPARIN ALLERGY, she was given a bolus of bivalirudin and a bivalirudin drip was started. A BMW wire was advanced into the distal portion of the RCA. A compliant balloon (2 x 12) was then inflated over the lesion. Angiogram after angioplasty showed an extensive amount of thrombus throughout the midportion of the RCA. Due to the extent of thrombus, I felt it appropriate to use aspiration thrombectomy. An aspiration thrombectomy catheter was then used for 2 runs through the mid RCA. Angiogram after this showed no longer thrombus in the mid RCA, although there was distal thrombus with contrast hang-up in the distal posterolateral branch. An Brooks drug-eluting stent (3 x 22) was placed over the initial lesion and inflated. At this time, a Prowater was advanced through the stent and into the posterolateral branch with a plan for possible dottering of the distal vessel. Intracoronary adenosine and Nipride were given. Angiogram post-medication shows resolution of flow into the distal coronary bed. A noncompliant balloon (3 x 12) was used to post-dilate the drug-eluting stent. Angiogram shows a pseudolesion which resolved with pullback of the wire. Final angiogram shows a well-apposed stent with no perforations or dissections and good flow distally. Wires were removed. Guide was removed over a J-wire. A radial band was placed over the arteriotomy site for hemostasis. The patient was given Brilinta 180 mg. Angiomax drip was stopped and Aggrastat drip continued. 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 ANGIOGRAPHIC SUMMARY: Left main: Normal size vessel with adequate reflux. It trifurcates into an LAD, ramus and left circumflex. It has 20% disease in the ostial portion. LAD: Normal size vessel with 10% disease in the proximal portion. The midportion has diffuse 40% disease. It gives off multiple small diagonals with the first major one being 99.9% blocked with minimal flow, most likely a chronic occlusion. Ramus: Small vessel with a 50% lesion in the proximal portion. Left circumflex: Small to moderate size vessel with 10% disease in the proximal portion, gives off 1 major obtuse marginal with 20% disease. RCA: Moderate size vessel with 100% occlusion in the midportion. LVEDP: 17. IMPRESSION: 1. Acute inferior ST elevation myocardial infarction with probable RV infarction. 2. Hypotension and bradycardia during the intervention most likely due to RV infarct and extensive amount of thrombus within the RCA. 3. Coronary artery disease/inferior STEMI status post Edcouch drug-eluting stent (3 x 22) to the RCA. 4. Tobacco abuse. 5. History of cerebrovascular accident. RECOMMENDATIONS: 1. Ms. Daugherty underwent PCI for an acute inferior STEMI as above and will be placed on aspirin and Brilinta therapy. Aspirin should be continued indefinitely and a plan for Brilinta for at least 12 months. 2. At this time, I would avoid beta linda and CHET inhibitor therapy due to her episodes of bradycardia and hypotension, most likely due to extensive thrombus during the case with interventional on her right coronary artery. This can be reassessed before discharge or possibly in the outpatient setting. 3. She will be watched in the CVICU overnight and if stable in the morning, plan for downgrade to the cardiac floor. She will most likely be in the hospital for at least 2-3 days. 4. Angiomax has been stopped. She will continue on Aggrastat for 18 hours due to the extensive amount of thrombus. 5. We will check a 2-Dimensional echocardiogram to look at her overall left ventricular function, cardiac structure and possible valvulopathies. 6. She will be started on statin therapy. 7. Further recommendations will be made based on the hospital course. 8. Tobacco cessation Thank you for allowing me to see Dana Daugherty. If there any questions, please do not hesitate to call. DO YVROSE Young// , 07:10 PM , 08:06 PM [place]
--- NOTE | 2017-09-17 12:28 | PD.CARD.PN ---
Subjective Subjective Remarks No events overnight Blood pressure stable [place] well this morning, then ate breakfast and mildly nauseated No chest pain, EKG this morning with resolution of ST elevations Inferior NC age undetermined Objective Medications Current Medications Medications (Trade) Dose Ordered Sig/Owen Route Start Time Stop Time Status Last Admin (NS Flush) 2 ml UNSCH PRN IVF 09/16/17 16:00 (Tylenol) 325 mg Q4H PRN PO 09/16/17 18:45 (Percocet 5-325 Mg) 1 tab Q4H PRN PO 09/16/17 18:45 (Percocet 10-325 Mg) 1 tab Q4H PRN PO 09/16/17 18:45 09/17/17 05:14 (Morphine Inj) 2 mg Q30M PRN IV PUSH 09/16/17 18:45 (Zofran Inj) 4 mg Q6H PRN IVP 09/16/17 18:45 09/17/17 09:27 (Aspirin Chew) 81 mg DAILY PO 09/17/17 09:00 09/17/17 08:29 (Brilinta) 90 mg BID PO 09/17/17 09:00 09/17/17 08:29 (Lipitor) 80 mg HS PO 09/16/17 21:00 09/16/17 21:00 (Phenergan) 25 mg Q4H PRN PO 09/17/17 11:45 09/17/17 11:56 (Mag-Al Plus Susp Liq) 15 ml NOW ONCE PO 09/17/17 12:30 09/17/17 12:31 Vital Signs / I&O Vital Signs Date Time Temp Pulse Resp B/P (MAP) Pulse Ox O2 Delivery O2 Flow Rate FiO2 09/17/17 11:00 97.7 84 16 103/53 (70) 95 09/17/17 11:00 80 09/17/17 07:00 74 09/17/17 07:00 97.6 69 16 112/66 (81) 97 09/17/17 03:00 98.2 80 18 113/67 (82) 97 09/17/17 03:00 79 09/16/17 23:00 97.9 80 20 119/70 (86) 98 09/16/17 23:00 80 09/16/17 19:00 97.8 86 20 118/70 (86) 98 09/16/17 19:00 86 09/16/17 18:48 93 09/16/17 18:30 97.5 93 18 106/65 (79) 92 09/16/17 17:57 91 100/93 09/16/17 16:36 09/16/17 16:21 98 20 170/87 (114) 98 Nasal Cannula 2.00 09/16/17 16:19 95 Nasal Cannula 2.00 09/16/17 15:29 97.9 92 18 143/98 (113) 96 I/O 09/16/17 09/16/17 09/16/17 09/17/17 09/17/17 09/17/17 07:00 15:00 23:00 07:00 15:00 23:00 Intake Total 831 ml 593 ml Balance 831 ml 593 ml Intake Oral 800 ml IV Total 31 ml 593 ml # Voids 2 # Bowel Movements 0 Physical Exam GENERAL: NAD, AAOx3 SKIN: Warm and dry. HEAD: Atraumatic. Normocephalic. EYES: Pupils equal and round. No scleral icterus. No injection or drainage. ENT: No nasal bleeding or discharge. Mucous membranes pink and moist. NECK: Trachea midline. No JVD. CARDIOVASCULAR: Regular rate and rhythm. RESPIRATORY: No accessory muscle use. Clear to auscultation. Breath sounds equal bilaterally. GASTROINTESTINAL: Abdomen soft, non-tender, nondistended. Hepatic and splenic margins not palpable. MUSCULOSKELETAL: Extremities without clubbing, cyanosis, or edema. No obvious deformities. Right radial, no hematoma, neurovascularly intact distally NEUROLOGICAL: Awake and alert. No obvious cranial nerve deficits. Motor grossly within normal limits. Five out of 5 muscle strength in the arms and legs. Normal speech. PSYCHIATRIC: Appropriate mood and affect; insight and judgment normal. Laboratory Laboratory Tests Test 09/16/17 16:00 09/17/17 08:02 White Blood Count 11.1 TH/MM3 9.0 TH/MM3 Red Blood Count 4.28 MIL/MM3 3.85 MIL/MM3 Hemoglobin 13.3 GM/DL 12.1 GM/DL Hematocrit 38.6 % 35.4 % Mean Corpuscular Volume 90.3 FL 92.1 FL Mean Corpuscular Hemoglobin 31.2 PG 31.4 PG Mean Corpuscular Hemoglobin Concent 34.5 % 34.1 % Red Cell Distribution Width 13.0 % 13.4 % Platelet Count 389 TH/MM3 340 TH/MM3 Mean Platelet Volume 8.3 FL 7.6 FL Neutrophils (%) (Auto) 74.1 % 75.6 % Lymphocytes (%) (Auto) 17.9 % 15.8 % Monocytes (%) (Auto) 6.8 % 7.4 % Eosinophils (%) (Auto) 1.1 % 0.8 % Basophils (%) (Auto) 0.1 % 0.4 % Neutrophils # (Auto) 8.2 TH/MM3 6.8 TH/MM3 Lymphocytes # (Auto) 2.0 TH/MM3 1.4 TH/MM3 Monocytes # (Auto) 0.8 TH/MM3 0.7 TH/MM3 Eosinophils # (Auto) 0.1 TH/MM3 0.1 TH/MM3 Basophils # (Auto) 0.0 TH/MM3 0.0 TH/MM3 CBC Comment DIFF FINAL DIFF FINAL Differential Comment Prothrombin Time 9.4 SEC Prothromb Time International Ratio 0.9 RATIO Activated Partial Thromboplast Time 27.4 SEC Blood Urea Nitrogen 14 MG/DL 9 MG/DL Creatinine 0.82 MG/DL 0.75 MG/DL Random Glucose 152 MG/DL 96 MG/DL Calcium Level 9.1 MG/DL 8.3 MG/DL Magnesium Level 2.1 MG/DL Sodium Level 137 MEQ/L 142 MEQ/L Potassium Level 3.7 MEQ/L 4.0 MEQ/L Chloride Level 107 MEQ/L 111 MEQ/L Carbon Dioxide Level 23.2 MEQ/L 22.4 MEQ/L Anion Gap 7 MEQ/L 9 MEQ/L Estimat Glomerular Filtration Rate 69 ML/MIN 76 ML/MIN Troponin I 0.04 NG/ML Triglycerides Level 135 MG/DL Cholesterol Level 189 MG/DL LDL Cholesterol 117 MG/DL HDL Cholesterol 45.3 MG/DL Cholesterol/HDL Ratio 4.17 RATIO Imaging Last 24 hours Impressions Chest X-Ray 09/16/17 1554 Signed Impressions: Service Date/Time: Saturday, September 16, 2017 16:18 - CONCLUSION: 1. No definite acute abnormality seen. 2. Possible mass in the right upper lung. A CT examination the chest is recommended at some point. Jeremy Oliveira MD Assessment and Plan Problem List: (1) CAD (coronary artery disease) ICD Codes: I25.10 - Atherosclerotic heart disease of [place] coronary artery without angina pectoris (2) Acute inferior myocardial infarction ICD Codes: I21.19 - ST elevation (STEMI) myocardial infarction involving other coronary artery of inferior wall Status: Acute (3) Nausea ICD Codes: R11.0 - Nausea Status: Acute (4) Jaw pain ICD Codes: R68.84 - Jaw pain Status: Acute (5) CVA (cerebral vascular accident) ICD Codes: I63.9 - Cerebral infarction, unspecified Assessment and Plan 1) Acute inferior STEMI s/p [place] MARC (3x22) to mid RCA ASA/Brilinta BB/CHET previously held due to concern for RV infarction, will plan to start low dose Statin Aggrastat for 18 hours 2) 2D echo pending 3) Tobacco cessation Discussed for greater than 3 minutes 4) Plan to move to [facility] or [facility]U 5) Possible discharge tomorrow Bryant Dang DO Sep 17, 2017 12:28
--- NOTE | 2017-09-17 14:18 | EKG ---
Date Performed: 09/17/2017 Time Performed: 07:08:30 PTAGE: 71 years EKG: Sinus rhythm . Possible inferior infarct - age undetermined Abnormal ECG Compared to PREVIOUS TRACING , evolution of inferior myocardial infarction, no longer having ST elev ations DOCTOR: Bryant Dang Interpretating Date/Time 09/17/2017 14:17:19
[2017-09-17 15:00] VITALS: BP 128/71; PULSE 80; PULSE 89; RESP 16; TEMP 98.1; O2SAT 93
[2017-09-17 19:00] VITALS: BP 110/52; PULSE 110; PULSE 84; RESP 16; TEMP 100; O2SAT 96
[2017-09-17] MEDS: METOPROLOL TARTRATE 25 MG TAB PO SCH (20:56)
[2017-09-17] MEDS: ATORVASTATIN 10 MG TAB PO SCH (21:01)
[2017-09-17 23:00] VITALS: BP 108/54; PULSE 80; PULSE 82; RESP 16; TEMP 100.2; O2SAT 93
--- NOTE | 2017-09-17 23:23 | PD.CONS ---
[facility] By [facility] Physician Jaydon Maldonado MD Diagnoses: History of Present Illness 71-year-old female with a past history of cva, COPD not on medication, who presented on 09/16 with nausea, vomiting, found to have ST elevation GA, underwent cardiac catheterization with PCI. Patient is seen this morning around 10 AM. Says she is feeling all right. Reports nausea has resolved. Denies any chest pain or shortness of breath. She says she is a [place] going home within the next 1-2 days. Review of Systems Except as stated in HPI: all other systems reviewed are Neg Past Family Social History Allergies: Coded Allergies: Sulfa (Sulfonamide Antibiotics) (Unverified Allergy, Mild, 09/16/17) penicillin G (Unverified Allergy, Mild, 09/16/17) propoxyphene (Unverified Allergy, Mild, 09/16/17) heparin (Verified Allergy, Unknown, unknown, 09/16/17) Past Medical History Reported history of COPD History of CVA. Some mild residual right-sided weakness, ataxia. CAD Past Surgical History Dilation and curetted Bilateral tubal ligation Bilateral vein surgeries on legs Knee surgery Reported Medications patient does not take any home medications. Family History Mother at age 84 secondary to old age. Father secondary to drowning. Brother with history of coronary artery disease. Social History Patient has smoked one pack per day since age 23. Rare alcohol use. Denies any illicit drug use. Physical Exam Vital Signs Vital Signs Date Time Temp Pulse Resp B/P (MAP) Pulse Ox O2 Delivery O2 Flow Rate FiO2 09/17/17 19:00 110 09/17/17 19:00 100.0 84 16 110/52 (71) 96 09/17/17 15:00 80 09/17/17 15:00 98.1 89 16 128/71 (90) 93 09/17/17 11:00 97.7 84 16 103/53 (70) 95 09/17/17 11:00 80 09/17/17 07:00 74 09/17/17 07:00 97.6 69 16 112/66 (81) 97 09/17/17 03:00 98.2 80 18 113/67 (82) 97 09/17/17 03:00 79 Physical Exam GENERAL: This is a well-nourished, well-developed patient, in no apparent distress. SKIN: No rashes, ecchymoses or lesions. Cool and dry. HEAD: Atraumatic. Normocephalic. No temporal or scalp tenderness. EYES: Pupils equal round and reactive. Extraocular motions intact. No scleral icterus. No injection or drainage. ENT: Nose without bleeding, purulent drainage or septal hematoma. Throat without erythema, tonsillar hypertrophy or exudate. Uvula midline. Airway patent. NECK: Trachea midline. No JVD or lymphadenopathy. Supple, nontender, no meningeal signs. CARDIOVASCULAR: Regular rate and rhythm without murmurs, gallops, or rubs. RESPIRATORY: Clear to auscultation. Breath sounds equal bilaterally. No wheezes , rales, or rhonchi. GASTROINTESTINAL: Abdomen soft, non-tender, nondistended. No hepato-splenomegaly , or palpable masses. No guarding. MUSCULOSKELETAL: Extremities without clubbing, cyanosis, or edema. No joint tenderness, effusion, or edema noted. No calf tenderness. Negative Homans sign bilaterally. NEUROLOGICAL: Awake and alert. Cranial nerves II through XII intact. Motor and sensory grossly within normal limits. Five out of 5 muscle strength in all muscle groups. some mild weakness on the right which patient demonstrates but is not significant. Normal speech. Laboratory Laboratory Tests Test 09/17/17 08:02 White Blood Count 9.0 Red Blood Count 3.85 Hemoglobin 12.1 Hematocrit 35.4 Mean Corpuscular Volume 92.1 Mean Corpuscular Hemoglobin 31.4 Mean Corpuscular Hemoglobin Concent 34.1 Red Cell Distribution Width 13.4 Platelet Count 340 Mean Platelet Volume 7.6 Neutrophils (%) (Auto) 75.6 Lymphocytes (%) (Auto) 15.8 Monocytes (%) (Auto) 7.4 Eosinophils (%) (Auto) 0.8 Basophils (%) (Auto) 0.4 Neutrophils # (Auto) 6.8 Lymphocytes # (Auto) 1.4 Monocytes # (Auto) 0.7 Eosinophils # (Auto) 0.1 Basophils # (Auto) 0.0 CBC Comment DIFF FINAL Differential Comment Blood Urea Nitrogen 9 Creatinine 0.75 Random Glucose 96 Calcium Level 8.3 Sodium Level 142 Potassium Level 4.0 Chloride Level 111 Carbon Dioxide Level 22.4 Anion Gap 9 Estimat Glomerular Filtration Rate 76 Triglycerides Level 135 Cholesterol Level 189 LDL Cholesterol 117 HDL Cholesterol 45.3 Cholesterol/HDL Ratio 4.17 Result Diagram: 09/17/17 0802 09/17/17 0802 Imaging Last Impressions Chest X-Ray 09/16/17 1554 Signed Impressions: Service Date/Time: Monday, September 16, 2017 16:18 - CONCLUSION: 1. No definite acute abnormality seen. 2. Possible mass in the right upper lung. A CT examination the chest is recommended at some point. Jeremy Oliveira MD Assessment and Plan Assessment and Plan //Acute inferior ST REAL status post MARC to mid RCA -EF 50%. Mild right ventricular dilation, with right ventricular systolic function normal. Only Trace tricuspid valve regurgitation. -Continue aspirin, Brilinta -Starting beta linda as per cardiology. -Statin -Complete 18 hours of Aggrastat. //possible mass in right lung. as seen on chest x-ray. Personally visualized.There is possibility of this cancer. Patient will need close follow- up with primary care with CT chest as outpatient. //COPD. With no acute exacerbation. Continue to monitor. //Tobacco abuse. Cessation counseling provided. Discussed Condition With patient, nurse. Morgan Day MD Sep 17, 2017 23:23
[2017-09-18 03:00] VITALS: BP 130/70; PULSE 76; PULSE 82; RESP 14; TEMP 98.2; O2SAT 96
[2017-09-18] MEDS ORDERED: IOHEXOL 350 MG/ML 100 ML BTL (for Cath Lab) OTHER ONE (06:59)
[2017-09-18] MEDS ORDERED: IOHEXOL 350 MG/ML 50 ML BTL (for Cath Lab) OTHER ONE (06:59)
[2017-09-18 07:00] VITALS: BP 121/64; PULSE 82; RESP 18; TEMP 98.7; O2SAT 93
[2017-09-18 08:23] LABS: AUTOMATED NEUTROPHIL # 6.6 TH/MM3 (1.8-7.7); BASOPHIL % 0.5 % (0.0-2.0); EOSINOPHIL # 0.1 TH/MM3 (0-0.4); EOSINOPHIL % 1.3 % (0.0-4.0); HEMATOCRIT 34.5 % (35.0-46.0); HEMOGLOBIN 11.7 GM/DL (11.6-15.3); LYMPH % 18.2 % (9.0-44.0); LYMPHOCYTE # 1.7 TH/MM3 (1.0-4.8); MEAN CELL VOLUME 91.6 FL (80.0-100.0); MEAN CORPUSCULAR HEMOGLOBIN 31.2 PG (27.0-34.0); MEAN PLATELET VOLUME 7.8 FL (7.0-11.0); MONO % 8.9 % (0.0-8.0); MONOCYTE # 0.8 TH/MM3 (0-0.9); NEUT % 71.1 % (16.0-70.0); PLATELET COUNT 265 TH/MM3 (150-450); RED BLOOD COUNT 3.76 MIL/MM3 (4.00-5.30); RED CELL DISTRIBUTION WIDTH 13.2 % (11.6-17.2); WHITE BLOOD COUNT 9.3 TH/MM3 (4.0-11.0)
[2017-09-18] MEDS: ASPIRIN 81 MG CHEW TAB PO SCH (08:44)
[2017-09-18] MEDS: TICAGRELOR 90 MG TAB PO SCH (08:45)
[2017-09-18] MEDS: METOPROLOL TARTRATE 25 MG TAB PO SCH (08:45)
[2017-09-18] MEDS ORDERED: LISINOPRIL 5 MG TAB PO SCH (09:00)
[2017-09-18] MEDS ORDERED: LISI-519 PO (10:48)
[2017-09-18] MEDS ORDERED: BRIL90TA PO (10:48)
[2017-09-18] MEDS ORDERED: METO25TA3 PO (10:48)
[2017-09-18] MEDS ORDERED: LIPI10TA PO (10:48)
[2017-09-18] MEDS ORDERED: ASPI81 PO (10:48)
--- NOTE | 2017-09-18 12:05 | PD.CARD.PN ---
Subjective Subjective Remarks No events overnight Blood pressure stable No chest pain/SOB/nausea Objective Medications Current Medications Medications (Trade) Dose Ordered Sig/Owen Route Start Time Stop Time Status Last Admin (NS Flush) 2 ml UNSCH PRN IVF 09/16/17 16:00 (Tylenol) 325 mg Q4H PRN PO 09/16/17 18:45 (Percocet 5-325 Mg) 1 tab Q4H PRN PO 09/16/17 18:45 (Percocet 10-325 Mg) 1 tab Q4H PRN PO 09/16/17 18:45 09/17/17 05:14 (Morphine Inj) 2 mg Q30M PRN IV PUSH 09/16/17 18:45 (Zofran Inj) 4 mg Q6H PRN IVP 09/16/17 18:45 09/17/17 09:27 (Aspirin Chew) 81 mg DAILY PO 09/17/17 09:00 09/18/17 08:44 (Brilinta) 90 mg BID PO 09/17/17 09:00 09/18/17 08:45 (Lipitor) 80 mg HS PO 09/16/17 21:00 09/17/17 21:01 (Phenergan) 25 mg Q4H PRN PO 09/17/17 11:45 09/17/17 11:56 (Lopressor) 12.5 mg Q12HR PO 09/17/17 21:00 09/18/17 08:45 (Prinivil) 5 mg DAILY PO 09/18/17 09:00 09/18/17 08:45 Vital Signs / I&O Vital Signs Date Time Temp Pulse Resp B/P (MAP) Pulse Ox O2 Delivery O2 Flow Rate FiO2 09/18/17 07:00 98.7 82 18 121/64 (83) 93 09/18/17 03:00 98.2 76 14 130/70 (90) 96 09/18/17 03:00 82 09/17/17 23:00 100.2 82 16 108/54 (72) 93 09/17/17 23:00 80 09/17/17 19:00 110 09/17/17 19:00 100.0 84 16 110/52 (71) 96 09/17/17 15:00 80 09/17/17 15:00 98.1 89 16 128/71 (90) 93 I/O 09/17/17 09/17/17 09/17/17 09/18/17 09/18/17 09/18/17 07:00 15:00 23:00 07:00 15:00 23:00 Intake Total 831 ml 593 ml 480 ml 240 ml Output Total 15 ml Balance 831 ml 593 ml 465 ml 240 ml Intake Oral 800 ml 480 ml 240 ml IV Total 31 ml 593 ml Output Emesis 15 ml # Voids 2 2 4 # Bowel Movements 0 0 0 Physical Exam GENERAL: NAD, AAOx3 SKIN: Warm and dry. HEAD: Atraumatic. Normocephalic. EYES: Pupils equal and round. No scleral icterus. No injection or drainage. ENT: No nasal bleeding or discharge. Mucous membranes pink and moist. NECK: Trachea midline. No JVD. CARDIOVASCULAR: Regular rate and rhythm. RESPIRATORY: No accessory muscle use. Clear to auscultation. Breath sounds equal bilaterally. GASTROINTESTINAL: Abdomen soft, non-tender, nondistended. Hepatic and splenic margins not palpable. MUSCULOSKELETAL: Extremities without clubbing, cyanosis, or edema. No obvious deformities. Right radial, no hematoma, neurovascularly intact distally NEUROLOGICAL: Awake and alert. No obvious cranial nerve deficits. Motor grossly within normal limits. Five out of 5 muscle strength in the arms and legs. Normal speech. PSYCHIATRIC: Appropriate mood and affect; insight and judgment normal. Laboratory Laboratory Tests Test 09/18/17 07:49 White Blood Count 9.3 TH/MM3 Red Blood Count 3.76 MIL/MM3 Hemoglobin 11.7 GM/DL Hematocrit 34.5 % Mean Corpuscular Volume 91.6 FL Mean Corpuscular Hemoglobin 31.2 PG Mean Corpuscular Hemoglobin Concent 34.0 % Red Cell Distribution Width 13.2 % Platelet Count 265 TH/MM3 Mean Platelet Volume 7.8 FL Neutrophils (%) (Auto) 71.1 % Lymphocytes (%) (Auto) 18.2 % Monocytes (%) (Auto) 8.9 % Eosinophils (%) (Auto) 1.3 % Basophils (%) (Auto) 0.5 % Neutrophils # (Auto) 6.6 TH/MM3 Lymphocytes # (Auto) 1.7 TH/MM3 Monocytes # (Auto) 0.8 TH/MM3 Eosinophils # (Auto) 0.1 TH/MM3 Basophils # (Auto) 0.0 TH/MM3 CBC Comment DIFF FINAL Differential Comment Assessment and Plan Problem List: (1) CAD (coronary artery disease) ICD Codes: I25.10 - Atherosclerotic heart disease of [place] coronary artery without angina pectoris (2) Acute inferior myocardial infarction ICD Codes: I21.19 - ST elevation (STEMI) myocardial infarction involving other coronary artery of inferior wall Status: Acute (3) Nausea ICD Codes: R11.0 - Nausea Status: Acute (4) Jaw pain ICD Codes: R68.84 - Jaw pain Status: Acute (5) CVA (cerebral vascular accident) ICD Codes: I63.9 - Cerebral infarction, unspecified Assessment and Plan 1) Acute inferior STEMI s/p [place] MARC (3x22) to mid RCA ASA/Brilinta/BB/Statin/CHET-I 2) EF normal 3) Tobacco cessation Discussed for greater than 3 minutes 4) Cardiovascularly stable for discharge Follow up in the office with me 5) Possible lung mass Discussed with patient, she will follow up with PCP Given Xray report Note sent to PCP Bryant Dang DO Sep 18, 2017 12:05
--- NOTE | 2017-09-18 12:08 | HHI.DS ---
Discharge Summary Admission Date Sep 16, 2017 at 16:16 Discharge Date: Sep 18, 2017 Admitting Diagnosis Acute inferior STEMI (1) Lung mass Diagnosis: Secondary ICD Codes: R91.8 - Other nonspecific abnormal finding of lung field (2) Acute inferior myocardial infarction Diagnosis: Principal ICD Codes: I21.19 - ST elevation (STEMI) myocardial infarction involving other coronary artery of inferior wall Status: Acute (3) CAD (coronary artery disease) Diagnosis: Principal ICD Codes: I25.10 - Atherosclerotic heart disease of [place] coronary artery without angina pectoris Brief History Presented and found to have acute inferior myocardial infarction s/p MARC to RCA. Did well, EF 55%. ASA/Brilinta/Statin/BB/CHET-I. CXR found possible mass right upper lobe, will have her follow up with her PCP for CT. CBC/BMP: 09/18/17 0749 09/17/17 0802 Significant Findings Laboratory Tests Test 09/16/17 16:00 09/17/17 08:02 09/18/17 07:49 White Blood Count 11.1 TH/MM3 (4.0-11.0) Neutrophils (%) (Auto) 74.1 % (16.0-70.0) 75.6 % (16.0-70.0) 71.1 % (16.0-70.0) Neutrophils # (Auto) 8.2 TH/MM3 (1.8-7.7) Prothrombin Time 9.4 SEC (9.8-11.6) Random Glucose 152 MG/DL (74-106) Estimat Glomerular Filtration Rate 69 ML/MIN (>89) 76 ML/MIN (>89) Red Blood Count 3.85 MIL/MM3 (4.00-5.30) 3.76 MIL/MM3 (4.00-5.30) Calcium Level 8.3 MG/DL (8.5-10.1) Chloride Level 111 MEQ/L (98-107) LDL Cholesterol 117 MG/DL (0-99) Hematocrit 34.5 % (35.0-46.0) Monocytes (%) (Auto) 8.9 % (0.0-8.0) Pt Condition on Discharge: Good Discharge Disposition: Discharge Home Discharge Instructions DIET: Follow Instructions for: Heart Healthy Diet Activities you can perform: See Additionl Instruction Additional Activity Instructio: No lifting more than 10 lbs for 3 days Bryant Dang DO Sep 18, 2017 12:08
== END 2017-09-18 12:03 | disposition home or self-care (01) | DRG 229 ==
LOC: PHED 15:21 → PHEDA 16:16 → HCVI 18:30
PROVIDERS: ADMIT Internal Medicine; ATTEND Internal Medicine
PROC: 02C00ZZ Extirpation of Matter from Coronary Artery, One Artery, Open Approach (ICD-10-PCS; principal; 2017-09-16)
PROC: 027034Z Dilation of Coronary Artery, One Artery with Drug-eluting Intraluminal Device, Percutaneous Approach (ICD-10-PCS; 2017-09-16)
PROC: 4A023N7 Measurement of Cardiac Sampling and Pressure, Left Heart, Percutaneous Approach (ICD-10-PCS; 2017-09-16)
PROC: B2111ZZ Fluoroscopy of Multiple Coronary Arteries using Low Osmolar Contrast (ICD-10-PCS; 2017-09-16)
DX: I21.19 ST elevation (STEMI) myocardial infarction involving other coronary artery of inferior wall (principal); J44.9 Chronic obstructive pulmonary disease, unspecified; R91.8 Other nonspecific abnormal finding of lung field; I25.10 Atherosclerotic heart disease of native coronary artery without angina pectoris; R68.84 Jaw pain; Z86.73 Personal history of transient ischemic attack (TIA), and cerebral infarction without residual deficits; Z88.0 Allergy status to penicillin; Z88.2 Allergy status to sulfonamides; Z88.8 Allergy status to other drugs, medicaments and biological substances; Z72.0 Tobacco use
CPT/HCPCS: 71045; 80048; 80061; 83735; 84484; 85002; 85025; 85610; 85730; 92941; 93005; 93306; 93458; 99152; 99153; C1725; C1769; C1874; C1887; C1893; J0153; J0461; J0583; J1644; J2250; J2270; J2405; J3010; J3246; J7030; J7040; Q0169; Q9967